=== PATIENT | male | born 1960 | race Caucasian/White ===

== ENCOUNTER 2021-05-09 16:23 | Emergency (ER) | payer BC ==
[2021-05-09] MEDS ORDERED: Aspirin 81 MG Tab.Chew PO ONE (16:36)
[2021-05-09] MEDS ORDERED: Sodium Chloride 0.9% 75 ML IV SCH (17:30)
[2021-05-09] MEDS ORDERED: Sodium Chloride 0.9% 10 ML Syringe FLUSH ONE (17:30)
[2021-05-09] MEDS ORDERED: Iopamidol 755 Mg/ML 100 ML Bottle IV SCH (17:30)
[2021-05-09 18:51] LABS: CORONAVIRUS COVID-19 NAA NEGATIVE (NEGATIVE)
[2021-05-09] MEDS ORDERED: Heparin Sodium 5,000 Units/ML Vial IVPUSH ONE (19:14)
[2021-05-09] MEDS ORDERED: Nitroglycerin 0.4 MG Tab.SL SL PRN (19:17)
[2021-05-09] MEDS ORDERED: HYDROmorphone 0.5 MG/0.5 ML Syringe IVPUSH ONE (19:18)
[2021-05-09] MEDS ORDERED: Ondansetron 4 MG/2 ML SDV ONE (19:48)
== END 2021-05-09 20:08 | disposition other institution (70) ==
LOC: JP.ED 16:23
DX: R07.89 Other chest pain (principal); R77.8 Other specified abnormalities of plasma proteins; Z88.1 Allergy status to other antibiotic agents; Z91.041 Radiographic dye allergy status; Z20.822 Contact with and (suspected) exposure to COVID-19
CPT/HCPCS: 0241U; 36415; 71045; 71045-26; 71275; 80053; 81001; 84484; 85025; 85379; 85610; 85730; 93005; 93010; 96374; 96375; 99283; 99285-25; A9270-GY; J1170; J1644; J3490; Q9967

== ENCOUNTER 2021-07-08 10:28 | Day surgery (SDC) | payer BC ==
[~2021-07-08 10:28] MED LIST: Midazolam 1 MG/ML 2 ML SDV ONE; Propofol 200 MG/20 ML SDV ONE; fentaNYL 100 MCG/2 ML SDV ONE
[2021-07-08] MEDS ORDERED: Sodium Chloride 0.9% 1,000 ML IV SCH (11:00)
== END 2021-07-08 12:30 | disposition home or self-care (01) ==
LOC: JP.SDS 10:28
PROVIDERS: ATTEND Surgery
DX: Z12.11 Encounter for screening for malignant neoplasm of colon (principal); D12.3 Benign neoplasm of transverse colon; Z80.0 Family history of malignant neoplasm of digestive organs
CPT/HCPCS: J2250; J2704; J3010; J7030